=== PATIENT | female | born 1995 | race Caucasian/White ===

== ENCOUNTER 2024-03-31 21:30 | Emergency (ER) | payer OTHER ==
[2024-04-01] MEDS: HYDROmorphone 1 MG/ML CARPUJECT IM STA
[2024-04-01] MEDS: DEXAMETHASONE 10 MG/ML VIAL IM STA (00:04)
[2024-04-01] MEDS: CYCLOBENZAPRINE 10 MG TABLET PO STA (00:05)
[2024-04-01] MEDS: KETOROLAC 60 MG/2 ML VIAL IM STA (00:06)
--- NOTE | 2024-04-01 00:38 | ED Physician Documentation ---
History of Present Illness - Stated complaint Stated Complaint: LOWER BACK PX - Chief complaint Chief Complaint: Back Pain - History obtained from History obtained from: Patient - Additonal information Additional information: The patient comes to the emergency department chief complaint of low back pain. She has a history of occasional back strain due to heavy lifting at her job and states this feels similar to previous episodes. She denies any distinct injury. No urinary symptoms. No loss of bowel or bladder control. No numbness and tingling in her feet. No pain shooting down her legs. She is not known to be . PD PAST MEDICAL HISTORY - Past Medical History Past Medical History: Yes Musculoskeletal: Other - Past Surgical History Past Surgical History: No - Present Medications Home Medications: Ambulatory Orders Medication Instructions Recorded Confirmed No Known Home Medications 05/27/23 05/27/23 Cyclobenzaprine [Flexeril] 10 mg PO TID PRN #20 tablet 04/01/24 HYDROcod/ACETAM 5/325 [[place] 5/325] 1 - 2 tablet PO Q6H PRN #14 tablet 04/01/24 - Allergies Allergies/Adverse Reactions: Allergies Allergy/AdvReac Type Severity Reaction Status Date / Time No Known Drug Allergies Allergy Verified 04/01/24 11:32 - Social History Does the pt smoke?: No Smoking Status: Never smoker Does the pt drink ETOH?: No Does the pt have substance abuse?: No - Immunizations Immunizations are current?: Yes - POLST Patient has POLST: No PD ED PE NORMAL - Vitals Vital signs reviewed: Yes - General General: No acute distress, Well developed/nourished, Other (Alert and grossly oriented) - HEENT HEENT: Atraumatic, EOMI, Moist mucous membranes - Neck Neck: Supple, no meningeal sign, No bony TTP - Cardiac Cardiac: RRR, No murmur, Strong equal pulses - Respiratory Respiratory: No respiratory distress - Abdomen Abdomen: Soft, Non tender, Non distended - Back Back: No spinal TTP, Other (Tenderness palpation across the low back, left greater than right.) - Derm Derm: Normal color, Warm and dry, No rash - Extremities Extremities: No deformity, Normal ROM s pain, No edema, No calf tenderness / cord - Neuro Neuro: No motor deficit, No sensory deficit, Other (Alert, grossly oriented. Remainder of neuroexam is grossly intact) - Psych Psych: Normal mood, Normal affect Results - Vitals Vitals: Oxygen O2 Source Room air PD Medical Decision Making - ED course Complexity details: considered differential, d/w patient ED course: The patient was treated symptomatically in the emergency department and feeling much better on reevaluation. She was stable for discharge home. We discussed symptomatic management at home and the need for follow-up with the patient's primary care physician. Departure - Departure Disposition: Home, Self Care Clinical Impression: Back pain Qualifiers: Back pain location: low back pain Chronicity: acute Back pain laterality: left Sciatica presence: with sciatica Sciatica laterality: sciatica of left side Qualified Code(s): M54.42 - Lumbago with sciatica, left side Condition: Stable Instructions: ED Low Back Pain Injury Prescriptions: Cyclobenzaprine [Flexeril] 10 mg PO TID PRN #20 tablet PRN Reason: Spasms HYDROcod/ACETAM 5/325 [[place] 5/325] 1 - 2 tablet PO Q6H PRN #14 tablet PRN Reason: Pain Comments: Your prescriptions have been electronically transmitted to the [facility] pharmacy in [place]. You have been given sedating medication tonight and should not drive for the next 8 hours. Please schedule follow-up with your primary doctor as needed. Forms: Activity restrictions Discharge Date/Time: 04/01/24 01:10
[2024-04-01 02:10] VITALS: BP 116/82; O2SAT 99
== END 2024-04-01 01:10 | disposition home or self-care (01) ==
LOC: EDBD → ED 21:30
DX: M54.42 Lumbago with sciatica, left side (principal)
CPT/HCPCS: 96372; 99283; A9270; J1170